=== PATIENT | male | born 1990 | race African-American/Black ===

== ENCOUNTER 2020-09-27 16:00 | Emergency (ER) | payer SELFPAY ==
[~2020-09-27] VITALS: Ht 177.8 cm; Wt 105.0 kg
[2020-09-27 16:09] VITALS: BP 144/82
[2020-09-27] MEDS ORDERED: IBUP-2029 MT (17:12)
[2020-09-27] MEDS ORDERED: IBUPROFEN 600MG TABLET PO ONE (17:15)
== END 2020-09-27 18:01 | disposition home or self-care (01) ==
LOC: ER 16:00
DX: R51.9 Headache, unspecified (principal); Z77.122 Contact with and (suspected) exposure to noise
CPT/HCPCS: 99282